=== PATIENT | female | born 1985 | race Hispanic/Latino ===

== ENCOUNTER 2018-01-28 22:15 | Inpatient (IN) | payer OTHER ==
[~2018-01-28] VITALS: Ht 167.6 cm; Wt 107.5 kg
[2018-01-28] MEDS ORDERED: SODIUM CHLORIDE 0.9% 1000ML 1,000 ML IV STA (22:16)
--- OUTSIDE RECORDS SUMMARY | 2018-01-28 22:18 | XMS REPORT | Clinical Summary ---
Author Author BIRDIE [facility] Address Unknown Phone Unavailable Care Team Providers Care Veterinary Surgeon Name Role Phone PCP Unavailable Allergies No Known Allergies Current Medications Prescription Sig. Disp. Refills Start End Date Status Date dextroamphetamine-ampheta Take by mouth daily. Active mine (AMPHETAMINE-DEXTROAMPHET AMINE) 20 mg Tab albuterol (PROVENTIL) 2.5 Take 2.5 mg by Active mg/0.5 mL Nebu nebulizer nebulization. solution acetaminophen-codeine Take 1 tablet by mouth 3 15 tablet 0 05/14/20 Active (TYLENOL #3) 300-30 mg (three) times daily as 17 per tablet needed for Pain. Max Daily Amount: 3 tablets Active Problems Not on file Encounters Date Type Specialty Care Team Description 09/14/2017 Procedure Pass 05/14/2017 Emergency Emergency Medicine Akin Meier MD Bilateral flank pain (Primary Dx);Pain of upper abdomen after 01/27/2017 Social History Tobacco Use Types Packs/Day Years Used Date Never Smoker Alcohol Use Drinks/Week oz/Week Comments Yes very rare Sex Assigned at Date Recorded Not on file Last Filed Vital Signs Vital Sign Reading Time Taken Blood Pressure 121/62 05/14/2017 4:44 AM CDT Pulse 68 05/14/2017 4:44 AM CDT Temperature 36.9 C (98.4 F) 05/14/2017 4:44 AM CDT Respiratory Rate 16 05/14/2017 4:44 AM CDT Oxygen Saturation 98% 05/13/2017 8:40 PM CDT Inhaled Oxygen - - Concentration Weight 108.9 kg (240 lb) 05/13/2017 8:40 PM CDT Height 167.6 cm (5' 6") 05/13/2017 8:40 PM CDT Body Mass Index 38.74 05/13/2017 8:40 PM CDT Plan of Treatment Not on file Results * CT abdomen/pelvis with/without IV contrast (renal stone protocol) (05/14/2017 3:48 AM) Specimen Performing Laboratory [facility] Narrative FINAL REPORT CT scan of the abdomen and pelvis: CLINICAL HISTORY: Bilateral flank pain and abdominal pain. Comparison exam CT scan of the abdomen and pelvis 07/01/2012 TECHNIQUE: CT scan of the abdomen and pelvis pre and post intravenous contrast according to the renal stone protocol. This exam was performed according to our departmental dose optimization program, which includes automated exposure control, adjustment of the mA and/or kV according to the patient's size and/or use of the iterative reconstruction technique. FINDINGS: Normal lung bases. Normal heart. Hepatomegaly and hepatic steatosis. Mild splenomegaly. Normal pancreas and gallbladder. No acute bowel abnormalities. Normal appendix. No free intraperitoneal air. No mesenteric or retroperitoneal lymphadenopathy. Normal aorta. Normal adrenal glands and kidneys. No renal or ureteral stones. No hydronephrosis. Retroverted uterus. No adnexal abnormality. Normal bladder. Normal skeleton, muscles, and subcutaneous fat. IMPRESSION: 1. Hepatomegaly and hepatic steatosis. 2. Mild splenomegaly. 3. No renal or ureteral stones. No hydronephrosis Signed: Jean Kilgore MD Report Verified Date/Time:05/14/2017 03:57:57 Reading Location: [address] Consult Reading Room Procedure Note Interface, External Ris In - 05/14/2017 4:00 AM CDT FINAL REPORT CT scan of the abdomen and pelvis: CLINICAL HISTORY: Bilateral flank pain and abdominal pain. Comparison exam CT scan of the abdomen and pelvis 07/01/2012 TECHNIQUE: CT scan of the abdomen and pelvis pre and post intravenous contrast according to the renal stone protocol. This exam was performed according to our departmental dose optimization program, which includes automated exposure control, adjustment of the mA and/or kV according to the patient's size and/or use of the iterative reconstruction technique. FINDINGS: Normal lung bases. Normal heart. Hepatomegaly and hepatic steatosis. Mild splenomegaly. Normal pancreas and gallbladder. No acute bowel abnormalities. Normal appendix. No free intraperitoneal air. No mesenteric or retroperitoneal lymphadenopathy. Normal aorta. Normal adrenal glands and kidneys. No renal or ureteral stones. No hydronephrosis. Retroverted uterus. No adnexal abnormality. Normal bladder. Normal skeleton, muscles, and subcutaneous fat. IMPRESSION: 1. Hepatomegaly and hepatic steatosis. 2. Mild splenomegaly. 3. No renal or ureteral stones. No hydronephrosis Signed: Jean Kilgore MD Report Verified Date/Time: 05/14/2017 03:57:57 Reading Location: [facility] [id number] Ortho Consult Reading Room * screen, urine (05/14/2017 1:51 AM) Component Value Ref Range Preg Test, Ur Negative Specimen Performing Laboratory Urine - Urine, [facility] Catch [address] [place] [address] * CBC with platelet count + automated diff (05/13/2017 11:02 PM) Component Value Ref Range WBC 7.9 3.5 - 10.5 K/ L RBC 4.05 3.93 - 5.22 M/ L Hemoglobin 11.7 11.2 - 15.7 GM/DL Hematocrit 36.6 34.1 - 44.9 % MCV 90.4 79.4 - 94.8 fL MCH 28.9 25.6 - 32.2 pg MCHC 32.0 (L) 32.2 - 35.5 GM/DL RDW 12.4 11.7 - 14.4 % Platelets 193 150 - 450 K/CU MM MPV 11.9 9.4 - 12.3 fL nRBC 0 0 - 0 /100 WBC % Neutros 51 % % Lymphs 39 % % Monos 6 % % Eos 3 % % Baso 1 % # Neutros 4.05 1.56 - 6.13 K/ L # Lymphs 3.04 1.18 - 3.74 K/ L # Monos 0.50 (H) 0.24 - 0.36 K/ L # Eos 0.23 0.04 - 0.36 K/ L # Baso 0.05 0.01 - 0.08 K/ L Immature 0 0 - 1 % Granulocytes-Relative Specimen Performing Laboratory Blood - Arm, [address] [address] * Urinalysis w/ Microscopic (05/13/2017 11:02 PM) Component Value Ref Range Color, UA Light Yellow Clarity, UA Clear Specific [place], UA 1.019 1.001 - 1.035 pH, UA 6.5 5.0 - 8.0 Protein, UA Negative Negative Glucose, UA Negative Negative Ketones, UA Negative Negative Bilirubin, UA Negative Negative Blood, UA Negative Negative Nitrite, UA Negative Negative Leukocytes, UA Negative Negative Urobilinogen, UA 0.2 0.2 - 1.0 mg/dL RBC, UA <1 /HPF WBC, UA 2 /HPF Bacteria, UA Rare Squam Epithel, UA <1 /HPF Ca Oxalate Shannan, UA Few Specimen Source Urine, Voided Specimen Performing Laboratory Urine - Urine, Voided [address] [address] * CBC with platelet count + automated diff (05/13/2017 11:02 PM) Specimen Performing Laboratory Blood Narrative The following orders were created for panel order CBC with platelet count + automated diff. Procedure Abnormality Status --------- - ------ CBC with platelet count ...[[id number]]AbnormalFinal result Please view results for these tests on the individual orders. * Lipase (05/13/2017 11:02 PM) Component Value Ref Range Lipase 24 8 - 78 U/L Specimen Performing Laboratory Blood - Arm, [address] [address] * Amylase (05/13/2017 11:02 PM) Component Value Ref Range Amylase 38 25 - 125 U/L Specimen Performing Laboratory Blood - Arm, [address] [address] * Hepatic function panel (05/13/2017 11:02 PM) Component Value Ref Range Protein, Total 6.8 6.0 - 8.3 gm/dL Albumin 4.0 3.5 - 5.0 g/dL Total Bilirubin 0.2 0.2 - 1.2 mg/dL Bilirubin, Direct 0.1 0.1 - 0.5 mg/dL Alkaline Phosphatase 65 40 - 150 U/L AST 22 5 - 34 U/L ALT 36 6 - 55 U/L Specimen Performing Laboratory Blood - Arm, [address] [address] * Basic Metabolic Panel (05/13/2017 11:02 PM) Component Value Ref Range Sodium 140 136 - 145 meq/L Potassium 4.5 3.5 - 5.1 meq/L Chloride 106 98 - 107 meq/L CO2 24 22 - 29 meq/L BUN 14 7 - 21 mg/dL Creatinine 0.79 0.57 - 1.25 mg/dL Glucose 140 (H) 70 - 105 mg/dL Calcium 9.1 8.4 - 10.2 mg/dL EGFR 86Comment: ESTIMATED GFR IS NOT ACCURATE mL/min/1.73 sq m CREATININE CLEARANCE IN PREDICTING GLOMERULAR FILTRATION RATE. ESTIMATED GFR IS NOT APPLICABLE FOR DIALYSIS PATIENTS. Specimen Performing Laboratory Blood - Arm, [address] [address] after 01/27/2017
--- OUTSIDE RECORDS SUMMARY | 2018-01-28 22:18 | XMS REPORT ---
Author Author [facility] Address Unknown Phone Unavailable Care Team Providers Care Supervisory Historian Name Role Phone ESTELA HERNANDEZ Unavailable Unavailable Problems This patient has no known problems. Allergies, Adverse Reactions, Alerts This patient has no known allergies or adverse reactions. Medications This patient has no known medications. Results Test Description Test Time Test Comments Text Results Atomic Results Result Comments URINALYSIS W/ MICROSCOPIC 2017-05-14 02:52:00 COLOR (BEAKER) (test znjc=323) Light Yellow CLARITY (BEAKER) (test xbja=510) Clear SPECIFIC GRAVITY UA (BEAKER) (test twdx=157) 1.019 1.001-1.035 PH UA (BEAKER) (test vehu=894) 6.5 5.0-8.0 PROTEIN UA (BEAKER) (test ptvg=884) Negative Negative GLUCOSE UA (BEAKER) (test ghcq=193) Negative Negative KETONES UA (BEAKER) (test lilc=732) Negative Negative BILIRUBIN UA (BEAKER) (test dilr=050) Negative Negative BLOOD UA (BEAKER) (test gxui=346) Negative Negative NITRITE UA (BEAKER) (test uqdd=298) Negative Negative LEUKOCYTE ESTERASE UA (BEAKER) (test ynda=805) Negative Negative UROBILINOGEN UA (BEAKER) (test qiqa=712) 0.2 mg/dL 0.2-1.0 RBC UA (BEAKER) (test rmes=179) < /HPF WBC UA (BEAKER) (test xlqv=136) 2 /HPF BACTERIA (BEAKER) (test pdfb=485) Rare SQUAMOUS EPITHELIAL (BEAKER) (test niwj=715) < /HPF CALCIUM OXALATE CRYSTALS (BEAKER) (test ylil=025) Few SOURCE(BEAKER) (test xwvw=2095) Urine, Voided SCREEN, [id number] 02:49:00* Test Item Value Reference Range Comments TEST URINE (BEAKER) (test rdzx=677) Negative [id number] 23:45:00* Test Item Value Reference Range Comments LIPASE (BEAKER) (test ybxq=742) 24 U/L 8-78 [id number] 23:45:00* Test Item Value Reference Range Comments AMYLASE (BEAKER) (test zekm=029) 38 U/L 25-125 BASIC METABOLIC [id number] 23:45:00* Test Item Value Reference Range Comments SODIUM (BEAKER) (test bsvq=128) 140 meq/L 136-145 POTASSIUM (BEAKER) (test tbve=937) 4.5 meq/L 3.5-5.1 CHLORIDE (BEAKER) (test rcrq=249) 106 meq/L 98-107 CO2 (BEAKER) (test oqwg=243) 24 meq/L 22-29 BLOOD UREA NITROGEN (BEAKER) (test tfgh=478) 14 mg/dL 7-21 CREATININE (BEAKER) (test wsgp=050) 0.79 mg/dL 0.57-1.25 GLUCOSE RANDOM (BEAKER) (test hstt=492) 140 mg/dL 70-105 CALCIUM (BEAKER) (test zsfb=221) 9.1 mg/dL 8.4-10.2 EGFR (BEAKER) (test dqvf=4488) 86 mL/min/1.73 sq m ESTIMATED GFR IS NOT ACCURATE CREATININE CLEARANCE IN PREDICTING GLOMERULAR FILTRATION RATE. ESTIMATED GFR IS NOT APPLICABLE FOR DIALYSIS PATIENTS. HEPATIC FUNCTION [id number] 23:45:00* Test Item Value Reference Range Comments TOTAL PROTEIN (BEAKER) (test ixli=654) 6.8 gm/dL 6.0-8.3 ALBUMIN (BEAKER) (test dusa=4073) 4.0 g/dL 3.5-5.0 BILIRUBIN TOTAL (BEAKER) (test akqx=339) 0.2 mg/dL 0.2-1.2 BILIRUBIN DIRECT (BEAKER) (test pzhv=345) 0.1 mg/dL 0.1-0.5 ALKALINE PHOSPHATASE (BEAKER) (test bmcc=395) 65 U/L 40-150 AST (SGOT) (BEAKER) (test ixlh=156) 22 U/L 5-34 ALT (SGPT) (BEAKER) (test haur=742) 36 U/L 6-55 CBC W/PLT COUNT & AUTO [id number] 23:23:00* Test Item Value Reference Range Comments WHITE BLOOD CELL COUNT (BEAKER) (test olyb=459) 7.9 K/ L 3.5-10.5 RED BLOOD CELL COUNT (BEAKER) (test cdog=770) 4.05 M/ L 3.93-5.22 HEMOGLOBIN (BEAKER) (test ukyw=697) 11.7 GM/DL 11.2-15.7 HEMATOCRIT (BEAKER) (test bfoc=657) 36.6 % 34.1-44.9 MEAN CORPUSCULAR VOLUME (BEAKER) (test lelx=865) 90.4 fL 79.4-94.8 MEAN CORPUSCULAR HEMOGLOBIN (BEAKER) (test rksx=825) 28.9 pg 25.6-32.2 MEAN CORPUSCULAR HEMOGLOBIN CONC (BEAKER) (test jdch=358) 32.0 GM/DL 32.2- 35.5 RED CELL DISTRIBUTION WIDTH (BEAKER) (test paix=177) 12.4 % 11.7-14.4 PLATELET COUNT (BEAKER) (test htcl=450) 193 K/CU MM 150-450 MEAN PLATELET VOLUME (BEAKER) (test nlkb=109) 11.9 fL 9.4-12.3 NUCLEATED RED BLOOD CELLS (BEAKER) (test nbrg=219) 0 /100 WBC 0-0 NEUTROPHILS RELATIVE PERCENT (BEAKER) (test cyyo=281) 51 % LYMPHOCYTES RELATIVE PERCENT (BEAKER) (test pvgv=578) 39 % MONOCYTES RELATIVE PERCENT (BEAKER) (test jmyc=795) 6 % EOSINOPHILS RELATIVE PERCENT (BEAKER) (test fytl=970) 3 % BASOPHILS RELATIVE PERCENT (BEAKER) (test fuxf=043) 1 % NEUTROPHILS ABSOLUTE COUNT (BEAKER) (test wvzf=682) 4.05 K/ L 1.56-6.13 LYMPHOCYTES ABSOLUTE COUNT (BEAKER) (test huoq=744) 3.04 K/ L 1.18-3.74 MONOCYTES ABSOLUTE COUNT (BEAKER) (test wwmb=674) 0.50 K/ L 0.24-0.36 EOSINOPHILS ABSOLUTE COUNT (BEAKER) (test fhly=536) 0.23 K/ L 0.04-0.36 BASOPHILS ABSOLUTE COUNT (BEAKER) (test lnlp=527) 0.05 K/ L 0.01-0.08 IMMATURE GRANULOCYTES-RELATIVE PERCENT (BEAKER) (test aqtr=5327) 0 % 0-1
[2018-01-28] MEDS ORDERED: ALBUTEROL SULF 0.083% NEB SOLN 3 ML NEB NEB STA (22:55)
[2018-01-28] MEDS ORDERED: IPRATROPIUM BROMIDE 0.02% 2.5 ML NEB NEB ONE (23:00)
[2018-01-28] MEDS ORDERED: CEFTRIAXONE SOD 1 GM VIAL IV SCH (23:00)
[2018-01-28] MEDS ORDERED: ACETAMINOPHEN 325 MG TAB PO ONE (23:00)
[2018-01-28 23:11] LABS: BASOPHILS % 0.4 % (0.0-1.0); EOSINOPHILS # (AUTO) 0.2 (0.0-0.4); EOSINOPHILS % 3.2 % (0.0-6.0); HEMOGLOBIN 9.2 g/dL (12.0-16.0); LYMPHOCYTES # (AUTO) 1.3 (1.0-3.2); LYMPHOCYTES % 23.2 % (18.0-39.1); MEAN CORPUSCULAR HEMOGLOBIN 28.2 pg (28-32); MEAN CORPUSCULAR HGB CONC 31.7 g/dL (31-35); MONOCYTES # (AUTO) 0.3 (0.2-0.8); MONOCYTES % 6.1 % (4.4-11.3); NEUTROPHILS # (AUTO) 3.6 (2.1-6.9); NEUTROPHILS % 66.5 % (38.7-80.0); PLATELET COUNT 197 x10e3/uL (140-360); RED BLOOD COUNT 3.26 x10e6/uL (3.6-5.1); RED CELL DISTRIBUTION WIDTH 14.6 % (11.7-14.4)
[2018-01-28 23:28] LABS: ALANINE AMINOTRANSFERASE 15 IU/L (0-55); ALBUMIN 3.4 g/dL (3.5-5.0); ALBUMIN/GLOBULIN RATIO 0.9 (0.8-2.0); ALKALINE PHOSPHATASE 57 IU/L (40-150); ANION GAP 12.4 mmol/L (8-16); BLOOD UREA NITROGEN 12 mg/dL (7-26); BUN/CREATININE RATIO 13 (6-25); CARBON DIOXIDE 25 mmol/L (22-29); CHLORIDE 102 mmol/L (98-107); CREATININE, SERUM 0.89 mg/dL (0.57-1.11); EST GLOMERULAR FILTRATION RATE > 60 ML/MIN (60-); GLUCOSE 166 mg/dL (74-118); MAGNESIUM 1.9 MG/DL (1.3-2.1); POTASSIUM 3.4 mmol/L (3.5-5.1); SODIUM 136 mmol/L (136-145)
[2018-01-29 00:35] LABS: COLOR,URINE YELLOW (YELLOW)
[2018-01-29 00:36] LABS: CLARITY,URINE CLEAR (CLEAR); KETONES,URINE NEGATIVE (NEGATIVE); LEUKOCYTE ESTERASE ,URINE NEGATIVE (NEGATIVE); NITRITE,URINE NEGATIVE (NEGATIVE); PROTEIN,URINE DIPSTICK NEGATIVE (NEGATIVE)
[2018-01-29 00:37] LABS: BILIRUBIN,URINE NEGATIVE (NEGATIVE); PREGNANCY TEST, URINE NEGATIVE (NEGATIVE); URINE UROBILINOGEN 0.2 mg/dL (0.2 - 1)
[2018-01-29 00:38] LABS: EPITHELIAL CELLS,URINE FEW /LPF; RBC,URINE 21-50 /HPF (0-5); WBC,URINE (MAN) 0-5 /HPF (0-5)
[2018-01-29] MEDS ORDERED: MORPHINE SULFATE 2 MG/ML SYR IV STA (00:51)
[2018-01-29] MEDS ORDERED: ONDANSETRON HCL 4 MG ORAL DISINTEGRATING TAB PO ONE (01:00)
[2018-01-29] MEDS ORDERED: SODIUM CHLORIDE 0.9% 50ML 50 ML ONE (01:00)
[2018-01-29] MEDS ORDERED: IOPAMIDOL 370 MG/ML 200 ML INFUS..BTL INJ ONE (01:01)
--- NOTE | 2018-01-29 02:09 | Diagnostic Imaging Report ---
CHEST 2 VIEWS, Technique: CHEST 2 VIEWS Clinical history: Fever No comparison DISCUSSION: Left lower lobe opacity. Normal cardiac silhouette for technique. No effusion or pneumothorax IMPRESSION: Left lower lobe pneumonia. Recommend 6-8 week follow-up. Signed by: Dr Kizzy Chaudhry MD on 01/29/2018 2:05 AM
--- NOTE | 2018-01-29 02:13 | Diagnostic Imaging Report ---
EXAM: CT ABDOMEN/PELVIS W DATE: 01/29/2018 12:14 AM INDICATION: \S\S/P BLADDER SLING, FEVER FLANK PAIN, EVAL PYELONEPH \S\[id number] \S\[id number] COMPARISON: None TECHNIQUE: The abdomen and pelvis were scanned using a multidetector helical scanner. Coronal and sagittal reformations were obtained. Routine protocol performed. IV Contrast: 100 ml Isovue 370 FINDINGS: LOWER THORAX: Left lower lobe opacity and clustered nodules. LIVER/BILIARY: No masses. No ductal dilatation. GALLBLADDER: Unremarkable SPLEEN: Unremarkable PANCREAS: Unremarkable ADRENALS: No nodules KIDNEYS: Symmetric perfusion. No enhancing masses. No hydronephrosis. GI TRACT: No wall thickening or evidence of obstruction. Normal appendix. VESSELS: Unremarkable PERITONEUM/RETROPERITONEUM: No free air or fluid LYMPH NODES: No lymphadenopathy REPRODUCTIVE ORGANS/BLADDER: Unremarkable for age with retroverted uterus, dominant right follicle/cyst. Tampon is noted in the vagina. SOFT TISSUES: Unremarkable BONES: No suspicious bone lesions. IMPRESSION: No acute abnormality in the abdomen or pelvis. Left lower lobe pneumonia. Signed by: Dr Kizzy Chaudhry MD on 01/29/2018 2:09 AM
[2018-01-29] MEDS: LEVOFLOXACIN 500MG/D5W 100ML 100 ML IV SCH (02:30)
[2018-01-29] MEDS: PIPER-TAZ 3.375 GM 50 ML IV SCH ×4 (02:30→18:00)
[2018-01-29] MEDS ORDERED: VANCOMYCIN 1GM/NS 250 ML 250 ML IV ONE (02:30)
[2018-01-29] MEDS ORDERED: ONDANSETRON HCL 4 MG ORAL DISINTEGRATING TAB PO PRN (02:45)
[2018-01-29] MEDS ORDERED: DEXTROSE 50% SYRINGE 50 ML IV PRN (02:45)
[2018-01-29] MEDS ORDERED: MORPHINE SULFATE 2 MG/ML SYR IV PRN (02:45)
[2018-01-29] MEDS ORDERED: KCL 20MEQ/.9 SOD CHL 1,000 ML IV ONE (02:45)
[2018-01-29] MEDS ORDERED: ALBUTEROL SULF 0.083% NEB SOLN 3 ML NEB NEB SCH (02:45)
--- OUTSIDE RECORDS SUMMARY | 2018-01-29 02:55 | XMS REPORT | Clinical Summary ---
Author Author BIRDIE [facility] Address Unknown Phone Unavailable Care Team Providers Care Supervisor Motorcycle [employer] Name Role Phone PCP Unavailable Allergies No [...] pain (Primary Dx);Pain of upper abdomen after 01/28/2017 Social History Tobacco Use Types Packs/Day Years [...] protocol) (05/14/2017 3:48 AM) Specimen Performing Laboratory [facility] Narrative FINAL REPORT CT scan of the [...] MD Report Verified Date/Time:05/14/2017 03:57:57 Reading Location: [address] Consult Reading Room Procedure Note Interface, [...] Report Verified Date/Time: 05/14/2017 03:57:57 Reading Location: [facility] [id number] Ortho Consult Reading Room * screen, urine (05/14/2017 1:51 AM) Component Value Ref Range Preg Test, Ur Negative Specimen Performing Laboratory Urine - Urine, [facility] Catch [address] [place] [address] * CBC with platelet count + automated [...] Granulocytes-Relative Specimen Performing Laboratory Blood - Arm, [address] [address] * Urinalysis w/ Microscopic (05/13/2017 11:02 PM) Component Value Ref Range Color, UA Light Yellow Clarity, UA Clear Specific [place]essel, UA 1.019 1.001 - 1.035 pH, UA [...] Specimen Performing Laboratory Urine - Urine, Voided [address] [address] * CBC with platelet count + automated diff (05/13/2017 11:02 PM) Specimen Performing Laboratory Blood Narrative The following orders were created for panel order CBC with platelet count + automated diff. Procedure Abnormality Status --------- - ------ CBC with platelet count ...[[id number]]AbnormalFinal result Please view results for these tests on the individual orders. * Lipase (05/13/2017 11:02 PM) Component Value Ref Range Lipase 24 8 - 78 U/L Specimen Performing Laboratory Blood - Arm, [address] [address] * Amylase (05/13/2017 11:02 PM) Component Value Ref Range Amylase 38 25 - 125 U/L Specimen Performing Laboratory Blood - Arm, [address] [address] * Hepatic function panel (05/13/2017 11:02 PM) Component Value Ref Range Protein, Total 6.8 6.0 - 8.3 gm/dL Albumin 4.0 3.5 - 5.0 g/dL Total Bilirubin 0.2 0.2 - 1.2 mg/dL Bilirubin, Direct 0.1 0.1 - 0.5 mg/dL Alkaline Phosphatase 65 40 - 150 U/L AST 22 5 - 34 U/L ALT 36 6 - 55 U/L Specimen Performing Laboratory Blood - Arm, [address] [address] * Basic Metabolic Panel (05/13/2017 11:02 PM) [...] PATIENTS. Specimen Performing Laboratory Blood - Arm, [address] [address] after 01/28/2017
[2018-01-29 03:37] VITALS: BP 123/50
[2018-01-29 04:00] VITALS: BP 123/50
[2018-01-29] MEDS: ALBUTEROL SULF 0.083% NEB SOLN 3 ML NEB NEB SCH ×3 (06:50→19:00)
[2018-01-29] MEDS: IPRATROPIUM BROMIDE 0.02% 2.5 ML NEB NEB SCH ×3 (06:50→19:00)
[2018-01-29] MEDS ORDERED: INSULIN REGULAR, HUMAN 100 UNIT/1 ML 3ML VIAL SQ SCH (07:30)
[2018-01-29] MEDS ORDERED: TYLENOL WITH C1 EACH PO (07:44)
[2018-01-29] MEDS ORDERED: SULFAMETHOXAZO1 EAC1 PO (07:48)
[2018-01-29] MEDS ORDERED: PIOGLITAZONE HC45 MG PO (07:48)
[2018-01-29] MEDS ORDERED: TRADJENTA5 MG (07:48)
[2018-01-29 08:07] VITALS: BP 126/60
[2018-01-29] MEDS ORDERED: TRADJENTA 5 MG PO SCH (09:00)
[2018-01-29 09:48] LABS: BASOPHILS # (AUTO) 0.1 (0.0-0.1); BASOPHILS % 0.7 % (0.0-1.0); EOSINOPHILS # (AUTO) 0.1 (0.0-0.4); HEMATOCRIT 27.6 % (34.2-44.1); HEMOGLOBIN 8.7 g/dL (12.0-16.0); LYMPHOCYTES # (AUTO) 0.9 (1.0-3.2); LYMPHOCYTES % 12.3 % (18.0-39.1); MEAN CORPUSCULAR HEMOGLOBIN 27.9 pg (28-32); MEAN CORPUSCULAR HGB CONC 31.5 g/dL (31-35); MEAN CORPUSCULAR VOLUME 88.5 fL (81-99); MONOCYTES # (AUTO) 0.3 (0.2-0.8); MONOCYTES % 3.6 % (4.4-11.3); NEUTROPHILS # (AUTO) 5.6 (2.1-6.9); NEUTROPHILS % 80.7 % (38.7-80.0); PLATELET COUNT 162 x10e3/uL (140-360); RED BLOOD COUNT 3.12 x10e6/uL (3.6-5.1)
[2018-01-29] MEDS: PIOGLITAZONE HCL 15 MG TAB PO SCH (11:00)
--- NOTE | 2018-01-29 11:22 | History and Physical ---
This patient came in with chills and cough and congestion. HISTORY OF PRESENTING ILLNESS: This is Ms. Sandra Valladares who had a sling procedure in this hospital. The patient went home fine, but on the day after surgery, the patient started developing some amount of cough and congestion and after that, the patient started to have chills and the patient felt sick and came into the hospital and was found to have pneumonia. PAST MEDICAL HISTORY: History of diabetes mellitus, history of asthma, history of kidney stones, and also history of endometriosis. PAST SURGICAL HISTORY: The patient had an ovarian cyst removed. The patient had uterine polypectomy, surgeries for endometriosis and also urethral stones. FAMILY HISTORY: Noncontributory. SOCIAL HISTORY: No ETOH. No IV drug abuse either. MEDICATIONS: She takes at home are; 1. Acetaminophen with codeine. 2. Tradjenta 5 mg. 3. Pioglitazone 45 mg. 4. Sulfamethoxazole. 5. Bactrim, which was started recently. REVIEW OF SYSTEMS: Negative for chest pain. Positive for some shortness of breath. No nausea. No vomiting. No diarrhea. No constipation. No rectal bleeding. No hematochezia, no hematemesis. No altered mental status changes. No headaches. No diplopia, no blurry vision. PHYSICAL EXAMINATION GENERAL: Patient is alert and oriented x3, slightly tachycardic. VITAL SIGNS: Heart rate is in the 100s to 114, temperature is 100.0, blood pressure is 109/48. HEENT: Normocephalic, atraumatic. Pupils react to light and accommodation. CVS: S1 and S2 normal. Regular rate and rhythm. LUNGS: Positive for bilateral wheezing. Positive for rhonchi on the right side. ABDOMEN: Nontender. nondistended. EXTREMITIES: No clubbing. No cyanosis. No edema. LABORATORY DATA: Initial laboratory white count was 20,000, hemoglobin was 9.2, hematocrit of 29.0. Chemistries: Sodium 136, potassium is 3.4, glucose is 166. Patient's lactic acid was 20.5. IMAGING: CT of the abdomen showed left lower lobe pneumonia, otherwise normal. No acute abnormality in the abdomen or pelvis. Chest x-ray showed left lower lobe pneumonia also and no effusion. The patient has been hypoxic still. ASSESSMENT 1. Probably aspiration, nosocomial pneumonia. 2. Bacteremia. PLAN: We will go ahead and add clindamycin to it. We will go ahead and discontinue the Rocephin. Patient apparently had an abnormal reaction to it. Blood cultures have been ordered and they are pending. Urine cultures are pending too. We will continue to monitor the patient. Further recommendations per clinical course. Keep her on outpatient Atrovent treatment and insulin sliding for her diabetes. We will also keep the patient on O2 as needed for hypoxia. Further recommendations per clinical course. Job#: [id number] VAS
[2018-01-29 12:11] VITALS: BP 117/55
[2018-01-29] MEDS ORDERED: GUAIFENESIN 600MG/DEXTROMETHORPHAN 30MG TABSR PO ONE (12:47)
[2018-01-29] MEDS: METRONIDAZOLE 500MG/NS 100ML 100 ML IV SCH ×2 (14:00→21:02)
[2018-01-29 16:13] VITALS: BP 118/56
[2018-01-29] MEDS: DOCUSATE SODIUM 100 MG CAP PO SCH (17:00)
[2018-01-29 20:00] VITALS: BP 125/58
[2018-01-29] MEDS ORDERED: SODIUM CHLORIDE 0.9% 250ML 250 ML ONE (21:01)
[2018-01-30] VITALS (8 sets, daily range): BP systolic 123–138; BP diastolic 57–77
[2018-01-30] MEDS: PIPER-TAZ 3.375 GM 50 ML IV SCH ×5 (00:06→23:23)
[2018-01-30] MEDS: IPRATROPIUM BROMIDE 0.02% 2.5 ML NEB NEB SCH ×4 (00:15→19:10)
[2018-01-30] MEDS: ALBUTEROL SULF 0.083% NEB SOLN 3 ML NEB NEB SCH ×4 (00:15→19:10)
[2018-01-30] MEDS: METRONIDAZOLE 500MG/NS 100ML 100 ML IV SCH ×3 (05:17→21:51)
[2018-01-30] MEDS: ACETAMINOPHEN/CODEINE 300MG - 30MG TAB PO PRN (05:59)
[2018-01-30 07:03] LABS: BASOPHILS % 0.3 % (0.0-1.0); EOSINOPHILS # (AUTO) 0.3 (0.0-0.4); EOSINOPHILS % 3.8 % (0.0-6.0); HEMATOCRIT 25.8 % (34.2-44.1); LYMPHOCYTES # (AUTO) 1.3 (1.0-3.2); LYMPHOCYTES % 19.5 % (18.0-39.1); MEAN CORPUSCULAR HEMOGLOBIN 27.6 pg (28-32); MONOCYTES # (AUTO) 0.5 (0.2-0.8); MONOCYTES % 7.1 % (4.4-11.3); NEUTROPHILS # (AUTO) 4.4 (2.1-6.9); NEUTROPHILS % 68.1 % (38.7-80.0); PLATELET COUNT 172 x10e3/uL (140-360)
[2018-01-30 07:40] LABS: ALANINE AMINOTRANSFERASE 12 IU/L (0-55); ALBUMIN 2.9 g/dL (3.5-5.0); ALBUMIN/GLOBULIN RATIO 0.9 (0.8-2.0); ALKALINE PHOSPHATASE 49 IU/L (40-150); ANION GAP 11.4 mmol/L (8-16); BLOOD UREA NITROGEN 9 mg/dL (7-26); BUN/CREATININE RATIO 12 (6-25); CALCIUM 8.3 mg/dL (8.4-10.2); CARBON DIOXIDE 24 mmol/L (22-29); CHLORIDE 106 mmol/L (98-107); CREATININE, SERUM 0.76 mg/dL (0.57-1.11); EST GLOMERULAR FILTRATION RATE > 60 ML/MIN (60-); GLUCOSE 123 mg/dL (74-118); POTASSIUM 4.4 mmol/L (3.5-5.1); SODIUM 137 mmol/L (136-145)
[2018-01-30] MEDS: PIOGLITAZONE HCL 15 MG TAB PO SCH (08:10)
[2018-01-30] MEDS: DOCUSATE SODIUM 100 MG CAP PO SCH ×2 (08:10→17:21)
[2018-01-30] MEDS: TRADJENTA 5 MG PO SCH (08:11)
[2018-01-30] MEDS ORDERED: SODIUM CHLORIDE 0.9% 250ML 250 ML ONE (12:45)
[2018-01-30] MEDS: SALINE 0.65% NAS SOLN 1 SPRAY BTL SCH (14:23)
[2018-01-30] MEDS: LORATADINE 10 MG TAB PO SCH (14:24)
[2018-01-30] MEDS: ACETAMINOPHEN 325 MG TAB PO PRN ×2 (15:30→22:33)
[2018-01-30] MEDS: KETOROLAC TROMETHAMINE 30 MG/ML VIAL IV PRN (17:22)
[2018-01-30] MEDS: GUAIFENESIN 600MG/DEXTROMETHORPHAN 30MG TABSR PO PRN (21:52)
[2018-01-31] VITALS: BP 123/56
[2018-01-31] MEDS: ALBUTEROL SULF 0.083% NEB SOLN 3 ML NEB NEB SCH (01:15)
[2018-01-31] MEDS: IPRATROPIUM BROMIDE 0.02% 2.5 ML NEB NEB SCH (01:15)
[2018-01-31 04:00] VITALS: BP 109/61
[2018-01-31] MEDS: PIPER-TAZ 3.375 GM 50 ML IV SCH ×2 (05:40→12:01)
[2018-01-31] MEDS: METRONIDAZOLE 500MG/NS 100ML 100 ML IV SCH ×2 (06:33→12:01)
[2018-01-31] MEDS: KETOROLAC TROMETHAMINE 30 MG/ML VIAL IV PRN (06:43)
[2018-01-31] MEDS: GUAIFENESIN 600MG/DEXTROMETHORPHAN 30MG TABSR PO PRN (06:43)
[2018-01-31 06:59] LABS: BASOPHILS % 0.6 % (0.0-1.0); EOSINOPHILS # (AUTO) 0.3 (0.0-0.4); EOSINOPHILS % 5.5 % (0.0-6.0); HEMATOCRIT 25.6 % (34.2-44.1); LYMPHOCYTES # (AUTO) 1.6 (1.0-3.2); LYMPHOCYTES % 31.5 % (18.0-39.1); MEAN CORPUSCULAR HEMOGLOBIN 27.9 pg (28-32); MEAN CORPUSCULAR HGB CONC 31.3 g/dL (31-35); MEAN CORPUSCULAR VOLUME 89.2 fL (81-99); MONOCYTES # (AUTO) 0.4 (0.2-0.8); MONOCYTES % 6.9 % (4.4-11.3); NEUTROPHILS # (AUTO) 2.8 (2.1-6.9); NEUTROPHILS % 54.9 % (38.7-80.0); PLATELET COUNT 194 x10e3/uL (140-360); RED BLOOD COUNT 2.87 x10e6/uL (3.6-5.1); RED CELL DISTRIBUTION WIDTH 14.8 % (11.7-14.4)
--- NOTE | 2018-01-31 07:06 | Diagnostic Imaging Report ---
PROCEDURE: X-RAY CHEST, TWO VIEWS COMPARISON: [facility], DX, CHEST 2 VIEWS, 01/29/2018, 1:22. INDICATIONS: PNEUMONIA; COUGH; CONGESTION FINDINGS: LUNGS: Minimal residual opacity in the left lower lobe. PLEURA: No effusions or pneumothorax. HEART \T\ MEDIASTINUM: The heart is within normal size-limits. BONES \T\ SOFT TISSUES: No acute findings. CONCLUSION: Resolving left lower lobe pneumonia. Romero Mukherjee D.O. Dictated by: Romero Mukherjee D.O. on 01/31/2018 at 7:08 Electronically approved by: Romero Mukherjee D.O. on 01/31/2018 at 7:08
[2018-01-31 07:29] LABS: ANION GAP 10.5 mmol/L (8-16); BLOOD UREA NITROGEN 11 mg/dL (7-26); BUN/CREATININE RATIO 15 (6-25); CALCIUM 8.8 mg/dL (8.4-10.2); CARBON DIOXIDE 24 mmol/L (22-29); CHLORIDE 109 mmol/L (98-107); CREATININE, SERUM 0.73 mg/dL (0.57-1.11); EST GLOMERULAR FILTRATION RATE > 60 ML/MIN (60-); GLUCOSE 122 mg/dL (74-118); POTASSIUM 4.5 mmol/L (3.5-5.1); SODIUM 139 mmol/L (136-145)
[2018-01-31 08:00] VITALS: BP 135/64
[2018-01-31] MEDS: LEVALBUTEROL HCL SOLN NEBU 1.25 MG/3 ML NEB INH SCH ×2 (08:11→11:30)
[2018-01-31] MEDS: TRADJENTA 5 MG PO SCH (08:54)
[2018-01-31] MEDS: SALINE 0.65% NAS SOLN 1 SPRAY BTL SCH (08:54)
[2018-01-31] MEDS: PIOGLITAZONE HCL 15 MG TAB PO SCH (08:54)
[2018-01-31] MEDS: DOCUSATE SODIUM 100 MG CAP PO SCH (08:54)
[2018-01-31] MEDS: LORATADINE 10 MG TAB PO SCH (08:54)
[2018-01-31 08:55] VITALS: BP 135/64
[2018-01-31 12:03] VITALS: BP 143/73
[2018-01-31] MEDS: ACETAMINOPHEN/CODEINE 300MG - 30MG TAB PO PRN (12:34)
[2018-01-31] MEDS ORDERED: ACETAMINOPHEN 325 MG TAB PO PRN (13:30)
[2018-01-31] MEDS ORDERED: ACETAMINOPHEN/CODEINE 300MG - 30MG TAB PO PRN (14:00)
[2018-01-31 16:00] VITALS: BP 119/56
[2018-01-31] MEDS ORDERED: AUGMENTIN 875-1 EACH PO (16:55)
[2018-01-31] MEDS ORDERED: XOPENEX HFA15 GM PO (16:56)
--- NOTE | 2018-03-14 00:20 | Discharge Summary ---
This patient came in with acute asthma exacerbation. Patient was started on Xopenex q.6 h. She also has had a touch of community-acquired pneumonia. The patient recently had a urological procedure placement done also; therefore, consult with Dr. Chapin Stein (sp?) was done. The patient's Xopenex treatment did do her some good. Questionable aspiration/nosocomial pneumonia was entertained. Zosyn and Flagyl were started. Patient was feeling better. Once patient's shortness of breath and asthma exacerbation got better, patient was discharged on Augmentin 875 mg twice a day for 10 days. Patient is asked to follow up with the primary care physician. FINAL DIAGNOSES 1. Pneumonia aspiration. 2. Asthma exacerbation. 3. Status post urological surgery. For further information, look in the chart. For discharge medication, look in the medical reconciliation sheet. Antibiotic on discharge was Augmentin. JANES LANDIN MD Job#: [id number]
== END 2018-01-31 17:56 | disposition home or self-care (01) | DRG 194 ==
LOC: ER 22:15 → MED/SURG3 01-29 02:53
PROVIDERS: ADMIT Family Medicine; ATTEND Family Medicine
DX: J18.9 Pneumonia, unspecified organism (principal); J45.901 Unspecified asthma with (acute) exacerbation; E11.9 Type 2 diabetes mellitus without complications; Y95 Nosocomial condition
CPT/HCPCS: 36415; 71046; 74177; 80048; 80053; 81001; 81025; 82948; 83605; 83735; 85025; 87040; 87086; 94640; 99284; J0696; J1885; J1956; J2270; J2543; J3370; J7030; J7050; Q9967